=== PATIENT | female | born 1990 | race Caucasian/White ===

== ENCOUNTER 2017-08-03 02:55 | Emergency (ER) | payer MEDICAID ==
[2017-08-03] MEDS ORDERED: KETOROLAC TROMETHAMINE INJ/PF 30 MG/1 ML SDV IV ONE (03:31)
[2017-08-03] MEDS ORDERED: FENTANYL CITRATE INJ/PF 100 MCG/2 ML AMPUL IV ONE (03:32)
[2017-08-03] MEDS ORDERED: ONDANSETRON HCL INJ/PF 4 MG/2 ML SDV IV ONE (03:32)
--- NOTE | 2017-08-03 03:53 | ER Document Report ---
ED GI/ - General Chief Complaint: Upper Abdominal Pain Stated Complaint: UPPER ABDOMINAL PAIN Time Seen by Provider: 08/03/17 03:20 Notes: Patient is a 26-year-old female who comes emergency department for chief complaint of upper abdominal pain. She states symptoms started 1 week ago, she is taking Nexium, she also took ibuprofen, she states that she does have a history of GERD but this is worse than usual. She states pain is much worse with eating, also uncomfortable with lying down. She has vomited twice over the past week but not for a couple of days. Last bowel movement was normal. Denies fever or chills. LMP within the past month. Denies any surgeries or daily medications other than Prozac and Nexium. TRAVEL OUTSIDE OF THE [place] IN LAST 30 DAYS: No - Related Data Allergies/Adverse Reactions: Sulfa (Sulfonamide Antibiotics) Allergy (Verified 09/01/11 11:41) Past Medical History - General Information source: Patient - Social History Smoking Status: Never Smoker Frequency of alcohol use: None Drug Abuse: None Lives with: Alone Family History: Reviewed & Not Pertinent GI Medical History: Reports: Hx Gastroesophageal Reflux Disease Surgical Hx: Negative - Immunizations Immunizations up to date: Yes Hx Diphtheria, Pertussis, Tetanus Vaccination: Yes - unk Review of Systems - Review of Systems Constitutional: No symptoms reported EENT: No symptoms reported Cardiovascular: No symptoms reported Respiratory: No symptoms reported Gastrointestinal: See HPI Genitourinary: No symptoms reported Female Genitourinary: No symptoms reported Musculoskeletal: No symptoms reported Skin: No symptoms reported Hematologic/Lymphatic: No symptoms reported Neurological/Psychological: No symptoms reported Physical Exam - Vital signs Vitals: Temp Pulse Resp BP Pulse Ox 98.9 F 88 18 118/56 L 97 08/03/17 03:01 08/03/17 03:01 08/03/17 03:01 08/03/17 03:01 08/03/17 03:01 - General General appearance: Other - Patient does appear mildly uncomfortable, she is alert, she is otherwise well-appearing - HEENT Head: Normocephalic, Atraumatic Eyes: Normal Conjunctiva: Normal Extraocular movements intact: Yes Eyelashes: Normal Pupils: PERRL Nasal: Normal Mouth/Lips: Normal Mucous membranes: Normal Pharynx: Normal Neck: Normal - Respiratory Respiratory status: No respiratory distress Breath sounds: Normal. No: Decreased air movement, Wheezing - Cardiovascular Rhythm: Regular. No: Tachycardia Heart sounds: Normal auscultation, S1 appreciated, S2 appreciated - Abdominal Inspection: Normal Distension: No distension Tenderness: Tender - Patient tender in the epigastric area with wincing, mild tenderness in the upper abdomen generally, lower abdomen is completely benign - Back Back: Normal, Nontender - Extremities General upper extremity: Normal inspection, Nontender, Normal ROM, Normal strength General lower extremity: Normal inspection, Nontender, Normal ROM, Normal strength - Neurological Neuro grossly intact: Yes Cognition: Normal Orientation: AAOx4 Jonna Coma Scale Eye Opening: Spontaneous Dresher Coma Scale Verbal: Oriented Jonna Coma Scale Motor: Obeys Commands Jonna Coma Scale Total: 15 Speech: Normal Cranial nerves: Normal Cerebellar coordination: Normal Motor strength normal: LUE, RUE, LLE, RLE Additional motor exam normals: Equal chair springer Sensory: Normal - Psychological Associated symptoms: Normal affect, Normal mood - Skin Skin Temperature: Warm Skin Moisture: Dry Skin Color: Normal Course - Re-evaluation Re-evalutation: Ultrasound unremarkable, lab workup unremarkable. Patient much more comfortable after medications. Patient is Scott on Nexium, however her location of pain, normal ultrasound, symptoms being worse with eating and lying down are very suggestive of gastritis/esophagitis and possible ulcer. No reported symptoms suggesting perforated ulcer, no complaints on reexamination. Discussed management, follow-up, return precautions. Patient states understanding and agreement - Vital Signs Vital signs: Temp Pulse Resp BP Pulse Ox 97.8 F 61 16 112/68 100 08/03/17 06:22 08/03/17 06:22 08/03/17 06:22 08/03/17 06:22 08/03/17 06:22 - Laboratory Result Diagrams: 08/03/17 04:10 08/03/17 04:10 Laboratory results interpreted by me: 08/03/17 04:10 ALT 59 H Discharge - Discharge Clinical Impression: Upper abdominal pain Condition: Stable Disposition: HOME, SELF-CARE Additional Instructions: Your ultrasound shows normal gallbladder, normal liver, no concerning a normality's. No evidence of pancreatitis or other concerning a normality on your lab workup either. Symptoms, workup, examination consistent with gastritis /esophagitis. Take the Carafate and Pepcid, continue your Nexium, take these as prescribed. Avoid NSAIDs, caffeine, smoking, alcohol, spicy food. Start with clear fluids, progress to bland food as tolerated, progress as tolerated from there. Follow-up with your primary care provider in about 1 week. You may need to be tested for H. pylori or have additional management. Return if you worsen including vomiting, vomiting blood, black stools, severe pain, fever of 100.4 or greater, or any other concerning symptoms. Prescriptions: Famotidine [Pepcid 20 mg Tablet] 20 mg PO BID #20 tablet Sucralfate [Carafate 1 gm Tablet] 1 gm PO QID #40 tablet Referrals: MAREK LUND FNP [Primary Care Provider] - Follow up in 1 week
[2017-08-03 04:42] LABS: ABSOLUTE EOSINOPHILS # (AUTO) 0.1 10^3/uL (0.0-0.6); ABSOLUTE LYMPHOCYTES (AUTO) 3.9 10^3/uL (0.5-4.7); ABSOLUTE MONOCYTES (AUTO) 0.6 10^3/uL (0.1-1.4); ABSOLUTE NEUT (AUTO) 4.8 10^3/uL (1.7-8.2); BASOPHILS % (AUTO) 0.2 % (0-2); HEMATOCRIT 38.3 % (36.0-47.0); HEMOGLOBIN 12.9 g/dL (12.0-15.5); LYMPHOCYTES % (AUTO) 41.2 % (13-45); MEAN CORPUSCULAR HEMOGLOBIN 27.2 pg (27.0-33.4); MEAN CORPUSCULAR HGB CONC 33.8 g/dL (32.0-36.0); MEAN CORPUSCULAR VOLUME 81 fl (80-97); MONOCYTES % (AUTO) 6.6 % (3-13); PLATELET COUNT 331 10^3/uL (150-450); RED BLOOD COUNT 4.75 10^6/uL (3.72-5.28); RED CELL DISTRIBUTION WIDTH 13.8 % (11.5-14.0); TOTAL CELLS COUNTED % (AUTO) 100 %; WHITE BLOOD COUNT 9.4 10^3/uL (4.0-10.5)
[2017-08-03 04:56] LABS: ALANINE AMINOTRANSFERASE 59 U/L (9-52); ALBUMIN 4.5 g/dL (3.5-5.0); ALKALINE PHOSPHATASE 56 U/L (38-126); ANION GAP 17 (5-19); ASPARTATE AMINO TRANSFERASE 34 U/L (14-36); BILIRUBIN,DIRECT 0.4 mg/dL (0.0-0.4); BILIRUBIN,TOTAL 0.4 mg/dL (0.2-1.3); BLOOD UREA NITROGEN 12 mg/dL (7-20); CALCIUM 9.2 mg/dL (8.4-10.2); CARBON DIOXIDE 24 mmol/L (22-30); CHLORIDE 101 mmol/L (98-107); GLUCOSE 87 mg/dL (75-110); LIPASE 40.3 U/L (23-300); POTASSIUM 3.8 mmol/L (3.6-5.0); SODIUM 141.8 mmol/L (137-145); TOTAL PROTEIN 8.2 g/dL (6.3-8.2)
--- NOTE | 2017-08-03 05:12 | RADIOLOGY REPORT (SQ) ---
EXAM DESCRIPTION: U/S ABDOMEN LIMITED W/O DOP CLINICAL HISTORY: epigastric and RUQ pain COMPARISON: None. TECHNIQUE: Real-time sonographic images of the right upper abdomen were obtained using a curved multihertz transducer. FINDINGS: The visualized portions of the pancreas are unremarkable. The visualized portions of the aorta and IVC are unremarkable. The liver has normal contour and echogenicity. The common bile duct measures 0.3 cm. Hepatopedal flow in the portal vein. The gallbladder has a normal appearance. No gallstones identified. No wall thickening or pericholecystic fluid. The right kidney measures 10.7 cm in length. No solid renal mass, shadowing renal calculi, or hydronephrosis. IMPRESSION: No sonographic abnormality identified in the right upper abdomen. Specifically, no gallstones.
[2017-08-03 06:22] VITALS: BP 112/68
== END 2017-08-03 06:22 | disposition home or self-care (01) ==
LOC: ER 02:55
DX: K21.9 Gastro-esophageal reflux disease without esophagitis (principal); Z79.899 Other long term (current) drug therapy; R10.10 Upper abdominal pain, unspecified; Z88.2 Allergy status to sulfonamides
CPT/HCPCS: 99284; 96374; 96375; 36415; 83690; 85025; 81025; 80053; 76705; J3010; J1885; J2405

== ENCOUNTER 2019-06-19 06:52 | Emergency (ER) | payer SELFPAY ==
[2019-06-19] MEDS ORDERED: LORAZEPAM INJ 2 MG/1 ML VIAL IV ONE (07:59)
[2019-06-19] MEDS ORDERED: KETOROLAC TROMETHAMINE INJ/PF 30 MG/1 ML SDV IV ONE (07:59)
[2019-06-19] MEDS ORDERED: ONDANSETRON HCL INJ/PF 4 MG/2 ML SDV IV ONE (07:59)
[2019-06-19] MEDS ORDERED: NORMAL SALINE 1000 ML 1,000 ML IV ONE (08:01)
--- NOTE | 2019-06-19 08:04 | ER Document Report ---
ED General - General Chief Complaint: Nausea/Vomiting Stated Complaint: DIZZINESS Time Seen by Provider: 06/19/19 07:50 Primary Care Provider: MAREK LUND FNP [Primary Care Provider] - Follow up as needed TRAVEL OUTSIDE OF THE [place] IN LAST 30 DAYS: No - HPI Notes: Patient is a 28-year-old female who presents emergency department for evaluation. She was seen at an urgent care on Thursday for neck pain. She states she was diagnosed with torticollis. She was sent home with muscle relaxers. She states that the torticollis improved but she continues to have neck pain. Is primarily on the left side of her neck and into her shoulder. She states her pain was worsened in the middle the night. She woke up and took a [place] that she had from a prescription approximately 2 years ago. She took it on an empty stomach. She states she promptly vomited, and comes in here diaphoretic, complaining abdominal pain and worsened neck pain. She has had no fevers or chills. No sore throat or rashes. She currently puts her pain at a 4 out of 5. - Related Data Allergies/Adverse Reactions: ibuprofen Allergy (Verified 06/19/19 07:21) Sulfa (Sulfonamide Antibiotics) Allergy (Verified 06/19/19 07:21) Home Medications: nexium, prozac Past Medical History - General Information source: Patient - Social History Smoking Status: Never Smoker Chew tobacco use (# tins/day): No Frequency of alcohol use: None Drug Abuse: None Family History: Reviewed & Not Pertinent Patient has suicidal ideation: No Patient has homicidal ideation: No Renal/ Medical History: Denies: Hx Peritoneal Dialysis GI Medical History: Reports: Hx Gastroesophageal Reflux Disease Psychiatric Medical History: Reports: Hx Depression - Immunizations Immunizations up to date: Yes Hx Diphtheria, Pertussis, Tetanus Vaccination: Yes - unk Review of Systems - Review of Systems Constitutional: See HPI EENT: No symptoms reported Respiratory: No symptoms reported Gastrointestinal: See HPI Genitourinary: No symptoms reported Musculoskeletal: See HPI Skin: No symptoms reported Neurological/Psychological: No symptoms reported Physical Exam - Vital signs Vitals: Temp Pulse Resp BP Pulse Ox 97.9 F 74 24 H 158/90 H 100 06/19/19 07:00 06/19/19 07:00 06/19/19 07:00 06/19/19 07:00 06/19/19 07:00 - Notes Notes: This is a 28-year-old female who appears older than her stated age in mild distress. She is hyperventilating, continues to complain of pain and nausea. Vital signs reviewed, please refer to chart. Head is normocephalic, atraumatic. Pupils equal round, reactive to light. Neck is supple without meningismus. She has tenderness to palpation at the attachment of the left sternocleidomastoid muscle with associated spasm. Minimal tenderness to palpation over the left trapezius. Heart is regular rate and rhythm. Lungs are clear to auscultation bilaterally. Abdomen is soft, nontender, normoactive bowel sounds throughout. Extremities without cyanosis, clubbing. Posterior calves are nontender. Peripheral pulses are equal. Skin is warm and dry. Patient is awake, alert, oriented x3. Cranial nerves II - XII are grossly intact without focal neurolo gical deficits. Strength is plus 5 out of 5 bilateral upper and lower extremities. Sensation is intact. Reflexes symmetrical. Intact [id number], rapid alternating movements, [id number]. Course - Re-evaluation Re-evalutation: 06/19/19 08:20 Patient is a 28-year-old female presents the emergency department for evaluati on. My suspicion is that this is all neck pain brought about by torticollis, then vomiting and diaphoresis brought about by taking [place] on an empty stomach. She is given IV fluids, Toradol, Ativan for muscle relaxation and to calm her hyperventilation, as well as Zofran. We will continue to monitor. Please note that I did verify she is not allergic to ibuprofen, just gets GI upset/GERD from taking NSAIDs orally. 06/19/19 09:42 Patient feeling improved, although drowsy secondary to the Ativan. She is warned not to take narcotic medications at home without food on her stomach. She is to continue her muscle relaxers, moist heat to the painful area. She is to follow-up with primary care, return to the ED with worsening. - Vital Signs Vital signs: Temp Pulse Resp BP Pulse Ox 97.9 F 74 24 H 158/90 H 100 06/19/19 07:00 06/19/19 07:00 06/19/19 07:00 06/19/19 07:00 06/19/19 07:00 Discharge - Discharge Clinical Impression: Drug-induced nausea and vomiting, Neck pain on left side Condition: Stable Disposition: HOME, SELF-CARE Instructions: Intravenous (IV) Fluids ([facility]), Antinausea Medication ([facility]) Additional Instructions: Continue neck pain care at home as previously instructed. Zofran as needed for nausea. Rest. Follow-up with primary care this week. Return to the ED with worsening or new concerning symptoms of any sort. Referrals: MAREK LUND FNP [Primary Care Provider] - Follow up as needed
[2019-06-19 11:14] VITALS: BP 140/66
--- NOTE | 2019-06-20 08:03 | EKG REPORT ---
SEVERITY:- NORMAL ECG - SINUS RHYTHM : Confirmed by: Rishi Herrera 20-Jun-2019 08:03:10
== END 2019-06-19 10:15 | disposition home or self-care (01) ==
LOC: ER 06:52
DX: R11.2 Nausea with vomiting, unspecified (principal); M54.2 Cervicalgia; R42 Dizziness and giddiness; Z88.6 Allergy status to analgesic agent; Z88.2 Allergy status to sulfonamides
CPT/HCPCS: 93005; 99284; 96361; 96374; 96375; 93010; J1885; J2060; J2405; J7030